=== PATIENT | female | born 1990 | race African-American/Black ===

== ENCOUNTER 2024-09-14 18:21 | Emergency (ER) | payer BC, SELFPAY ==
[2024-09-14] MEDS ORDERED: Ketorolac Tromethamine 30 MG (1 mL) VIAL ONE (19:48)
[2024-09-14] MEDS ORDERED: Cyclobenzaprine 10 MG TAB ONE (19:48)
== END 2024-09-14 20:10 | disposition home or self-care (01) ==
LOC: CSHERS 18:21
DX: M54.50 Low back pain, unspecified (principal); K08.89 Other specified disorders of teeth and supporting structures; F17.200 Nicotine dependence, unspecified, uncomplicated
CPT/HCPCS: 96372; 99283; J1885

== ENCOUNTER 2025-05-07 14:41 | Emergency (ER) | payer SELFPAY ==
[2025-05-07 15:32] LABS: #Basophils Less than 0.03 10x3/uL (0.0-0.2); #Eosinophils 0.13 10x3/uL (0.0-0.5); #Monocytes 0.44 10x3/uL (0.0-1.1); #Neutrophils 3.21 10x3/uL (1.5-8.4); %Basophils 0.4 % (0.0-2.0); %Eosinophils 2.6 % (0.0-6.0); %Lymphocytes 25.0 % (18.0-47.0); %Monocytes 8.6 % (0.0-10.0); %Neutrophils 63.0 % (40.0-75.0); Hematocrit 37.5 % (34.9-44.5); Hemoglobin 12.7 g/dL (12.0-15.5); Mean Corpuscular Hemoglobin 31.7 pg (27.0-33.0); Mean Corpuscular Volume 93.5 fL (81.6-98.3); Platelet Count 292 10x3/uL (150-450); Red Blood Cell (RBC) Count 4.01 10x6/uL (3.90-5.03); White Blood Cell (WBC) Count 5.09 10x3/uL (3.5-10.5)
[2025-05-07] MEDS ORDERED: diphenhydrAMINE 50 MG/ML VIAL ONE (15:42)
[2025-05-07] MEDS ORDERED: Metoclopramide HCl 10 MG (2 mL) VIAL ONE (15:42)
[2025-05-07] MEDS ORDERED: Ketorolac Tromethamine 30 MG (1 mL) VIAL ONE (15:43)
[2025-05-07 15:59] LABS: ALT (SGPT) 15 U/L (Less than 34); AST (SGOT) 26 U/L (11-34); Albumin 3.5 g/dL (3.1-4.5); Alkaline Phosphatase 44 U/L (40-110); Anion Gap 15 mmol/L (10-20); BUN (Urea Nitrogen) 9 mg/dL (7.0-18.7); Bilirubin, Total 0.6 mg/dL (0.3-1.2); Calc. Creatinine Clearance 0 mL/min (70-130); Calcium 8.3 mg/dL (7.8-10.44); Carbon Dioxide 20 mmol/L (22-29); Chloride 105 mmol/L (98-107); Globulin 3.5 g/dL (2.4-3.5); Glucose 130 mg/dL (70-105); Lipase 13 U/L (8-78); Potassium 3.6 mmol/L (3.5-5.1); Sodium 136 mmol/L (136-145)
[2025-05-07 16:29] LABS: Glucose, Urine (Dipstick) Normal (Negative); Leukocyte 25 (Negative); Protein, Urine (Dipstick) 30 mg/dl (Neg-Trace); Specific Gravity, Urine 1.020 (1.005-1.030)
[2025-05-07 16:34] LABS: Pregnancy Test - Urine (BHCG) POSITIVE (Negative); Pregu Control Background? CLEAR/WHITE (CLR/WHITE); Pregu Control Bar Appear? YES (CONTROL BAR)
[2025-05-07 17:55] LABS: CAUTI Indications for Culture Dysuria,urgency,freq; RBC/HPF 0-3 HPF (0-3); WBC/HPF 0-3 HPF (0-3)
[2025-05-07 17:56] LABS: Bacteria/HPF Rare-Few HPF (None Seen); Urine Culture Reflex No No
== END 2025-05-07 19:23 | disposition home or self-care (01) ==
LOC: CSHERS 14:41
DX: O99.891 Other specified diseases and conditions complicating pregnancy (principal); R10.30 Lower abdominal pain, unspecified; R11.0 Nausea; O99.331 Smoking (tobacco) complicating pregnancy, first trimester; F17.210 Nicotine dependence, cigarettes, uncomplicated; Z3A.01 Less than 8 weeks gestation of pregnancy
CPT/HCPCS: 76856; 80053; 81001; 81025; 83690; 84702; 85025; J1200; J1885; J2765